=== PATIENT | female | born 1950 | race Caucasian/White ===

== ENCOUNTER 2021-10-31 14:46 | Emergency (ER) | payer OTHER ==
[~2021-10-31] VITALS: Ht 160 cm; Wt 61.2 kg
[2021-10-31 15:54] LABS: BASOPHILS ABSOLUTE AUTO 0.04 K/mm3 (0.00-0.23); BASOPHILS PERCENT AUTO 1 % (0-2); EOSINOPHILS ABSOLUTE AUTO 0.06 K/mm3 (0.00-0.68); EOSINOPHILS PERCENT AUTO 1 % (0-6); Hematocrit 47.7 % (33.0-51.0); Hemoglobin 15.8 g/dL (11.5-16.0); IMMATURE GRAN ABSOLUTE AUTO 0.02 K/mm3 (0.00-0.10); IMMATURE GRAN PERCENT AUTO 0 % (0-1); LYMPHOCYTES ABSOLUTE AUTO 1.05 K/mm3 (0.84-5.20); LYMPHOCYTES PERCENT AUTO 13 % (21-46); MONOCYTES ABSOLUTE AUTO 0.62 K/mm3 (0.16-1.47); MONOCYTES PERCENT AUTO 8 % (4-13); Mean Corpuscular HGB 29.5 pg (26.0-34.0); Mean Corpuscular HGB Conc 33.1 g/dL (31.5-36.5); Mean Corpuscular Volume 89 fL (80-100); Mean Platelet Volume 10.5 fL (9.1-12.4); NEUTROPHILS ABSOLUTE AUTO 6.06 K/mm3 (1.96-9.15); NEUTROPHILS PERCENT AUTO 77 % (41-73); Platelet Count 218 K/mm3 (150-400); RDW Coefficient Variation 12.5 % (11.7-14.2); Red Blood Cell Count 5.36 M/mm3 (3.80-5.20); White Blood Cell Count 7.85 K/mm3 (4.00-11.30)
[2021-10-31 16:14] LABS: Albumin/Globulin Ratio 1.2 (0.8-1.8); Bilirubin, Total 0.6 mg/dL (0.1-1.0); Bun/Creatinine Ratio 26.9 (12.0-20.0); Calcium, Blood 9.7 mg/dL (8.5-10.1); Creatinine, Blood 1.04 mg/dL (0.40-1.00); Globulin, Blood 3.4 g/dL (2.2-4.0); Potassium, Blood 4.1 mmol/L (3.5-5.5); Total Protein, Blood 7.4 g/dL (6.4-8.2)
== END 2021-10-31 20:06 | disposition home or self-care (01) ==
LOC: ER 14:46
PROVIDERS: Student in an Organized Health Care Education/Training Program
DX: S70.11XA Contusion of right thigh, initial encounter (principal); R55 Syncope and collapse; I95.1 Orthostatic hypotension; I10 Essential (primary) hypertension; Z91.041 Radiographic dye allergy status; W19.XXXA Unspecified fall, initial encounter
CPT/HCPCS: 73552; 80053; 85025; 93005; 93010; 96361; 96374; 99284-25; J1885; J7030